=== PATIENT | female | born 2000 | race Caucasian/White ===

== ENCOUNTER 2018-04-07 13:29 | Emergency (ER) | payer OTHER ==
--- NOTE | 2018-04-07 14:05 | EDPHY ---
H & P Time Seen by Provider: 04/07/18 14:05 HPI/ROS: Chief complaint. Abdominal pain HPI. 17-year-old female right lower quadrant pain for 1 day. Increased pain and pressure with urination but no frequency. Decreased oral intake last night. Some diarrhea this morning. Seen at work and [employer] for same this morning and concern for appendicitis. No previous abdominal surgery. No chest discomfort or trouble breathing. ROS 10 systems were reviewed and negative with the exception of the elements mentioned in the history of present illness Past Medical/Surgical History: IUD Social History: Single, nonsmoker, no alcohol Smoking Status: Never smoked Physical Exam: General Appearance: Alert pleasant well-developed female mild distress vital signs are stable Eyes: Pupils equal and round no pallor or injection. ENT, Mouth: Mucous membranes are moist. Respiratory: There are no retractions, lungs are clear to auscultation. Cardiovascular: Regular rate and rhythm. Gastrointestinal: Abdomen is soft with tenderness in the right adnexal area. Not really pain in the right lower quadrant at McBurney's point. No masses. Normal bowel sounds Neurological: Awake and alert, sensory and motor exams grossly normal. Skin: Warm and dry, no rashes. Musculoskeletal: Neck is supple nontender. Extremities symmetrical, full range of motion. Psychiatric: Patient is oriented X 3, there is no agitation. Constitutional: Initial Vital Signs Temperature (C) 37 C 04/07/18 13:34 Heart Rate 86 04/07/18 13:34 Respiratory Rate 17 04/07/18 13:34 Blood Pressure 104/62 04/07/18 13:34 O2 Sat (%) 94 04/07/18 13:34 O2 Delivery Mode Room Air Allergies/Adverse Reactions: No Known Allergies Allergy (Unverified 04/07/18 13:33) Home Medications: Medication Instructions Recorded Methylphenidate 04/07/18 VYVANSE 04/07/18 Medical Decision Making - Diagnostics Imaging Results: Ultrasound reviewed by me and discussed with Dr. Spangler shows a normal appendix Complex right ovarian cyst measuring 2 x 3 cm. Procedures: IV normal saline Labs from work and [employer] are reviewed by me which shows a 5.3 white blood cell count with hemoglobin 13.4 hematocrit 40.4. Urinalysis was negative. Chemistry was normal. HCG was negative ED Course/Re-evaluation: Re-evaluation 3:40 p.m.. Patient and I discussed imaging study results. We reviewed her laboratory evaluation at from work and [employer]. We discussed treatment plan including criteria for return importance of follow-up and further evaluation. She expresses understanding and agreement Differential Diagnosis: I considered ovarian cyst, , appendicitis Departure - Departure Disposition: Home, Routine, Self-Care Clinical Impression: Ovarian cyst Qualifiers: Laterality: right Qualified Code(s): N83.201 - Unspecified ovarian cyst, right side Condition: Good Instructions: Ovarian Cyst (ED) Additional Instructions: Heat to low area of your abdomen where pain is in the lower right. Ibuprofen 400 mg every 6 hr for discomfort Return for worsening symptoms. Follow-up with gynecology in 2-3 days without fail Referrals: NONE *PRIMARY CARE P,. [Primary Care Provider] - As per Instructions Luiz Ernandez MD [Medical Doctor] - 2-3 days without fail
[2018-04-07 15:43] VITALS: BP 102/63
== END 2018-04-07 15:57 | disposition home or self-care (01) ==
DX: N83.201 Unspecified ovarian cyst, right side (principal)

== ENCOUNTER 2018-04-09 22:36 | Emergency (ER) | payer OTHER ==
--- NOTE | 2018-04-09 22:42 | EDPHY ---
H & P Stated Complaint: dx with ovarian cyst, returns with severe RLQ pain. denies N/V /D/C Time Seen by Provider: 04/09/18 22:42 HPI/ROS: HPI CHIEF COMPLAINT: Worsening right adnexal pain after intercourse. HISTORY OF PRESENT ILLNESS: Very pleasant 17-year-old female otherwise healthy recently diagnosed with a right ovarian cyst complex in nature on her ultrasound on April 07. She presents emergency room tonight stating that she had intercourse approximately an hour ago and during intercourse she had some discomfort in her right adnexa. However the pain got severe after intercourse while she was getting a shower. Pain is very sharp stabbing noted in her right adnexa. Of note this patient was recently diagnosed with a right complex ovarian cyst on the 30 of March. 2 days ago. Past Medical History: Denies significant medical history Past Surgical History: Denies significant surgical history Social History: Denies drugs alcohol tobacco. Family History: Noncontributory ROS REVIEW OF SYSTEMS: 10 Systems were reviewed and negative with the exception of the elements mentioned in the history of present illness. Exam Constitutional appears well nontoxic, triage nursing summary reviewed, vital signs reviewed, awake/alert. Eyes normal conjunctivae and sclera, EOMI, PERRLA. HENT normal inspection, atraumatic, moist mucus membranes, no epistaxis, neck supple/ no meningismus, no raccoon eyes. Respiratory clear to auscultation bilaterally, normal breath sounds, no respiratory distress, no wheezing. Cardiovascular rate normal, regular rhythm, no murmur, no edema, distal pulses normal. Gastrointestinal mild tender palpation right adnexal no peritoneal signs, no rebound, no guarding, normal bowel sounds, no distension, no pulsatile mass. Genitourinary no CVA tenderness. Musculoskeletal no midline vertebral tenderness, full range of motion, no calf swelling, no tenderness of extremities, no meningismus, good pulses, neurovascularly intact. Skin pink, warm, & dry, no rash, skin atraumatic. Neurologic awake, alert and oriented x 3, AAOx3, moves all 4 extremities equally, motor intact, sensory intact, CN II-XII intact, normal cerebellar, normal vision, normal speech. Psychiatric normal mood/affect. Heme/Lymph/Immune no lymphadenopathy. Differential Diagnosis: Differential diagnosis includes but is not limited to and in no particular order: Ruptured ovarian cyst, ovarian torsion, Bowel obstruction, appendicitis, gallbladder disease, diverticulitis, colitis, enteritis, perforated viscus, gastritis, GERD, esophagitis, urinary tract infection, pyelonephritis, kidney stones Medical Decision Making: Plan for this patient IV establishment blood draw, IV Dilaudid 0.5 mg for pain control IV Toradol 15 mg for pain control, 4 mg IV Zofran, gentle IV fluids, basic blood work, urinalysis, test, will repeat her ultrasound given she has worsening pain after intercourse looking for ruptured ovarian cyst and intra-abdominal free fluid, or ovarian torsion. Re-evaluation: Ultrasound of the pelvis unchanged from previous ultrasound. This shows a complex right ovarian cyst normal blood flow to both ovaries. Small amount of free fluid. This was faxed to me by [facility] at 12:02 a.m.. Given the patient's ultrasound is stable and she has worsening pain will proceed with CT abdomen pelvis with IV contrast rule out acute appendicitis. CT scan abdomen pelvis with IV contrast obtained due to ongoing right lower quadrant abdominal pain. This shows a 3.2 cm cyst in the right adnexa and small volume of free fluid in the cul-de-sac. Intrauterine device. Normal appendix. Faxed to me by [facility] at 1:33 a.m.. 0226: Patient re-evaluated this time resting comfortably in no acute distress. Abdomen is soft nontender. I discussed the patient's ultrasound results with her as well as CT. The ultrasound showed a stable cyst. The CT scan the abdomen pelvis with IV contrast shows a normal appendix and a 3.2 cm right adnexal cyst. I do recommend the patient does not have intercourse I also recommend that she follows up with OBGYN. She is comfortable this plan comfortable discharge home. She does understand return precautions return emergency room she has worsening abdominal pain, fever, vomiting. Source: Patient - Personal History Current Tetanus/Diphtheria Vaccine: Yes Current Tetanus Diphtheria and Acellular Pertussis (TDAP): Yes - Medical/Surgical History Hx Asthma: No Hx Chronic Respiratory Disease: No Hx Diabetes: No Hx Cardiac Disease: No Hx Renal Disease: No Hx Cirrhosis: No Hx Alcoholism: No Hx HIV/AIDS: No Hx Splenectomy or Spleen Trauma: No Other PMH: ovarian cyst - Social History Smoking Status: Never smoked Constitutional: Initial Vital Signs Temperature (C) 36.8 C 04/09/18 22:38 Heart Rate 67 04/09/18 22:38 Respiratory Rate 18 04/09/18 22:38 Blood Pressure 117/61 04/09/18 22:38 O2 Sat (%) 97 04/09/18 22:38 O2 Delivery Mode Room Air Allergies/Adverse Reactions: No Known Allergies Allergy (Unverified 04/09/18 22:37) Home Medications: Medication Instructions Recorded Methylphenidate 04/07/18 VYVANSE 04/07/18 Medical Decision Making - Data Points Laboratory Results: Laboratory Results 04/09/18 23:00 04/09/18 23:00 04/09/18 04/09/18 04/09/18 23:00 23:00 23:00 WBC 7.16 10^3/uL 10^3/uL (3.80-9.50) RBC 4.25 10^6/uL 10^6/uL (4.18-5.33) Hgb 12.0 g/dL L g/dL (12.6-16.3) Hct 36.0 % L % (38.0-47.0) MCV 84.7 fL fL (81.5-99.8) MCH 28.2 pg pg (27.9-34.1) MCHC 33.3 g/dL g/dL (32.4-36.7) RDW 13.1 % % (11.5-15.2) Plt Count 359 10^3/uL 10^3/uL (150-400) MPV 9.7 fL fL (8.7-11.7) Neut % (Auto) 48.2 % % (39.3-74.2) Lymph % (Auto) 38.1 % % (15.0-45.0) Owen % (Auto) 11.5 % % (4.5-13.0) Eos % (Auto) 1.5 % % (0.6-7.6) Baso % (Auto) 0.6 % % (0.3-1.7) Nucleat RBC Rel Count 0.0 % % (0.0-0.2) Absolute Neuts (auto) 3.45 10^3/uL 10^3/uL (1.70-6.50) Absolute Lymphs (auto) 2.73 10^3/uL 10^3/uL (1.00-3.00) Absolute Monos (auto) 0.82 10^3/uL H 10^3/uL (0.30-0.80) Absolute Eos (auto) 0.11 10^3/uL 10^3/uL (0.03-0.40) Absolute Basos (auto) 0.04 10^3/uL 10^3/uL (0.02-0.10) Absolute Nucleated RBC 0.00 10^3/uL 10^3/uL (0-0.01) Immature Gran % 0.1 % % (0.0-1.1) Immature Gran # 0.01 10^3/uL 10^3/uL (0.00-0.10) Sodium 133 mEq/L L mEq/L (135-145) Potassium 3.9 mEq/L mEq/L (3.5-5.2) Chloride 102 mEq/L mEq/L (97-110) Carbon Dioxide 23 mEq/l mEq/l (22-31) Anion Gap 8 mEq/L mEq/L (6-14) BUN 12 mg/dL mg/dL (7-23) Creatinine 0.8 mg/dL mg/dL (0.6-1.0) Estimated GFR > 60 Glucose 76 mg/dL mg/dL (70-100) Calcium 8.9 mg/dL mg/dL (8.5-10.4) Beta HCG, Qual NEGATIVE Urine Color Urine Appearance Urine pH Ur Specific Eddy Urine Protein Urine Ketones Urine Blood Urine Nitrate Urine Bilirubin Urine Urobilinogen Ur Leukocyte Esterase Urine Glucose 04/09/18 22:50 WBC RBC Hgb Hct MCV MCH MCHC RDW Plt Count MPV Neut % (Auto) Lymph % (Auto) Owen % (Auto) Eos % (Auto) Baso % (Auto) Nucleat RBC Rel Count Absolute Neuts (auto) Absolute Lymphs (auto) Absolute Monos (auto) Absolute Eos (auto) Absolute Basos (auto) Absolute Nucleated RBC Immature Gran % Immature Gran # Sodium Potassium Chloride Carbon Dioxide Anion Gap BUN Creatinine Estimated GFR Glucose Calcium Beta HCG, Qual Urine Color YELLOW Urine Appearance CLEAR Urine pH 6.0 (5.0-7.5) Ur Specific Eddy 1.012 (1.002-1.030) Urine Protein NEGATIVE (NEGATIVE) Urine Ketones NEGATIVE (NEGATIVE) Urine Blood NEGATIVE (NEGATIVE) Urine Nitrate NEGATIVE (NEGATIVE) Urine Bilirubin NEGATIVE (NEGATIVE) Urine Urobilinogen NEGATIVE EU EU (0.2-1.0) Ur Leukocyte Esterase NEGATIVE (NEGATIVE) Urine Glucose NEGATIVE (NEGATIVE) Medications Given: Discontinued Medications Hydromorphone HCl (Dilaudid) 0.5 mg IVP EDNOW ONE Stop: 04/09/18 22:52 Last Admin: 04/09/18 23:05 Dose: 0.5 mg Sodium Chloride (Ns) 1,000 mls @ 0 mls/hr IV EDNOW ONE; Wide Open PRN Reason: Protocol Stop: 04/09/18 22:52 Last Admin: 04/09/18 23:05 Dose: 1,000 mls Ketorolac Tromethamine (Toradol) 15 mg IVP EDNOW ONE Stop: 04/09/18 22:53 Last Admin: 04/09/18 23:02 Dose: 15 mg Ondansetron HCl (Zofran) 4 mg IVP EDNOW ONE Stop: 04/09/18 22:52 Last Admin: 04/09/18 23:03 Dose: 4 mg Departure - Departure Disposition: Home, Routine, Self-Care Clinical Impression: Abdominal pain Condition: Good Instructions: Ovarian Cyst (ED), Acute Abdominal Pain (ED) Additional Instructions: 1. Please follow up with OBGYN and you're previous scheduled appointment 2. Return emergency room if you have worsening abdominal pain, pelvic pain, fever, vomiting 3. No intercourse. 4. Please follow up about you're ovarian cyst. Referrals: NONE *PRIMARY CARE P,. [Primary Care Provider] - As per Instructions
[2018-04-09] MEDS ORDERED: HYDROmorphONE/DILAUDID 2 MG/ML INJ IVP ONE (22:51)
[2018-04-09] MEDS ORDERED: ONDANSETRON 4 MG/2 ML VIAL IVP ONE (22:51)
[2018-04-09] MEDS ORDERED: NS 1,000 ML IV ONE (22:51)
[2018-04-09] MEDS ORDERED: KETOROLAC 15 MG/1 ML SDV IVP ONE (22:52)
[2018-04-09 23:11] LABS: PLATELET COUNT 359 10^3/uL (150-400)
[2018-04-10] MEDS ORDERED: IOHEXOL 300 mgI/ML (OMNIPAQUE) 150 ML BTL IV ONE (00:45)
[2018-04-10 02:03] VITALS: BP 104/65
[2018-04-10] MEDS ORDERED: ONDANSETRON 4 MG/2 ML VIAL IVP ONE (02:27)
== END 2018-04-10 02:40 | disposition home or self-care (01) ==
DX: R10.9 Unspecified abdominal pain (principal); E86.9 Volume depletion, unspecified
CPT/HCPCS: 96374; J1170; J1885; J2405; Q9967